=== PATIENT | male | born 1975 | race Caucasian/White ===

== ENCOUNTER 2018-04-24 21:29 | Emergency (ER) | payer BC ==
[~2018-04-24] VITALS: Ht 172.7 cm; Wt 72.6 kg
[~2018-04-24 21:29] MED LIST: CLARITIN10 MG; CLONAZEPAM 1 MG1 M1; DIAZEPAM 10 MG10 M1; NORCO 5-325 TA1 EACH PO; SEROQUEL200 MG PO; SYNTHROID150 MCG PO; VENTOLIN HFA INH8 GM; ZOFRAN ODT4 MG PO; ZOLOFT100 MG PO
[2018-04-24 21:37] VITALS: BP 120/66
[2018-04-24] MEDS ORDERED: SINGULAIR 10 MG10 M1 PO (21:45)
[2018-04-24] MEDS ORDERED: SONATA5 M1 PO (21:46)
[2018-04-24] MEDS ORDERED: NORCO 5-325 TA1 EACH PO (21:55)
== END 2018-04-24 22:05 | disposition home or self-care (01) ==
LOC: ER 21:29
DX: S80.11XA Contusion of right lower leg, initial encounter (principal); F17.210 Nicotine dependence, cigarettes, uncomplicated; Z88.1 Allergy status to other antibiotic agents; Z88.8 Allergy status to other drugs, medicaments and biological substances; F32.9 Major depressive disorder, single episode, unspecified; J45.909 Unspecified asthma, uncomplicated; W22.8XXA Striking against or struck by other objects, initial encounter; Y92.89 Other specified places as the place of occurrence of the external cause; Y93.89 Activity, other specified; Y99.8 Other external cause status